=== PATIENT | male | born 1980 | race Caucasian/White ===

== ENCOUNTER 2018-02-26 06:08 | Emergency (ER) | payer OTHER ==
[2018-02-26 06:23] VITALS: TEMP 100.7; O2SAT 98
--- NOTE | 2018-02-26 06:44 | RAD ---
EXAM DESCRIPTION: Ankle,Left 3 Views CLINICAL HISTORY: stepped onto rock,pain and swelling,prior surgery COMPARISON: None. FINDINGS: 3 views of the right ankle. Prior plate and screw fixation of the distal fibula. Degenerative spurring of the tibiotalar joint. Medial soft tissue edema. No definite acute fracture identified. Base of the fifth metatarsal tarsal is intact. IMPRESSION: 1. No acute fracture or dislocation. Diffuse medial soft tissue edema. 2. Postoperative change of the distal fibula. 3. 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 Electronically signed by: Brendan Sevilla 02/26/2018 6:43 AM CDT
--- NOTE | 2018-02-26 06:56 | ED.PDOC ---
History of Present Illness - General Chief Complaint: Lower Extremity Injury Stated Complaint: L ankle pain Time Seen by Provider: 02/26/18 06:45 Source: patient, RN notes reviewed Exam Limitations: no limitations Additional Information: 37 YEAR OLD WHITE MALE HERE FOR EVALUATION OF LEFT ANKLE PAIN ON THE MEDIAL SIDE FOR 5 DAYS WORSE SINCE LAST 2 DAYS WITH CHILLS AND UNABLE TO WEIGHT BEAR HE HAD ORIF 12 YEARS AGO HE HAS NO HISTORY OF RECENT TRAUMA NO HISTORY OF GOUT OR POLYARTHRITIS HE WAS DIAGNOSED WITH PE 2 YEARS AGO AFTER A LENGTHY DISCUSSION I RECOMMENCED GOING TO A PLACE WHERE BLOOD CULTURES AND JOINT ASPIRATION COULD BE DONE AND A APPROPRIATE DIAGNOSIS CAN BE MADE NOW PATIENT INSISTS THAT WE GIVE ANTIBIOTICS AND RELEASE HIM AND HE WOULD SEEK MEDICAL HELP IF NOT BETTER - History of Present Illness Occurred: last week Pain - Lower Extremity: moderate: Left Ankle Method of Injury: unknown Improving Factors: immobilization Worsening Factors: movement Allergies/Adverse Reactions: Allergies Bee Venom Allergy (Verified 05/16/16 12:23) Home Medications: Ambulatory Orders Acetamin W/Cod #3 Tab [Tylenol w/CODEINE #3] 1 ea PO Q6HR PRN #40 tab 02/26/18 Clindamycin HCl [Cleocin] 300 mg PO Q6H #40 cap 02/26/18 Review of Systems - Review of Systems Constitutional: States: no symptoms reported EENTM: States: no symptoms reported Respiratory: States: no symptoms reported Cardiology: States: no symptoms reported Gastrointestinal/Abdominal: States: no symptoms reported Genitourinary: States: no symptoms reported Musculoskeletal: States: see HPI Skin: States: no symptoms reported Neurological: States: no symptoms reported Endocrine: States: no symptoms reported Past Medical History (General) - Patient Medical History Hx Seizures: No Hx Stroke: No Hx Dementia: No Hx Asthma: No Hx of COPD: No Hx Cardiac Disorders: No Hx Congestive Heart Failure: No Hx Pacemaker: No Hx Hypertension: Yes - off meds currently Hx Thyroid Disease: No Hx Diabetes: No Hx Gastroesophageal Reflux: Yes Hx Renal Disease: No Hx Cancer: No Hx of HIV: No Hx Hepatitis C: No Hx MRSA: No Surgical History: appendectomy - Vaccination History Hx Tetanus, Diphtheria Vaccination: Yes Hx Influenza Vaccination: Yes Hx Pneumococcal Vaccination: No Immunizations Up to Date: No - Social History Hx Tobacco Use: No Hx Chewing Tobacco Use: Yes 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 Family Medical History - Family History Father Family History: No Known Living Status: Still Living Physical Exam - Physical Exam General Appearance: Alert, Obvious distress, Well Developed, Well Groomed, Well Hydrated Eyes, Ears, Nose, Throat: PERRL/EOMI, normal ENT inspection, TMs normal, pharynx normal Neck: non-tender, full range of motion Cardiovascular/Respiratory: no M/R/G, normal peripheral pulses Gastrointestinal/Abdominal: non-tender, no organomegaly, no hernia Back: normal inspection, no CVA tenderness, no vertebral tenderness Leg: normal inspection, non-tender, no evidence of injury Knee: normal inspection, non-tender, no evidence of injury, normal ROM Ankle: bone tenderness, deformity, swelling, other - THE SKIN OVER THE LEFT MEDIAL MALLEOLUS IS RED TENDER AND SWOLLEN JUST BENEATH THE SCAR VERY SUSPICIOUS FOR SEPTIC ARTHRITIS Neuro/Tendon: normal sensation, normal motor functions, normal tendon functions , responds to pain Mental Status: alert Departure - Departure Clinical Impression: Cellulitis, Septic arthritis of ankle Disposition: Discharge to Home or Self Care Condition: Fair Departure Forms: ED Discharge - Pt. Copy, Patient Portal Self Enrollment Instructions: DI for Leg Pain Activity: no exercise Referrals: Flores Riggins NP [Primary Care Provider] - 1-2 Weeks Prescriptions: Acetamin W/Cod #3 Tab [Tylenol w/CODEINE #3] 1 ea PO Q6HR PRN #40 tab PRN Reason: Mild To Moderate Pain Clindamycin HCl [Cleocin] 300 mg PO Q6H #40 cap Home Medications: Ambulatory Orders Acetamin W/Cod #3 Tab [Tylenol w/CODEINE #3] 1 ea PO Q6HR PRN #40 tab 02/26/18 Clindamycin HCl [Cleocin] 300 mg PO Q6H #40 cap 02/26/18
[2018-02-26] MEDS ORDERED: KETOROLAC TROMETHAMINE INJ 30 MG/ML VIAL IV ONE (06:57)
[2018-02-26] MEDS ORDERED: CLINDAMYCIN IV 900MG 900 MG in PREMIX BAG 1 BAG IVPB ONE (08:22)
[2018-02-26] MEDS ORDERED: CLINDAMYCIN IV 900MG 50 ML IVPB ONE (08:29)
[2018-02-26 10:13] VITALS: BP 140/78
== END 2018-02-26 10:17 | disposition home or self-care (01) ==
LOC: ER 06:08
DX: M00.9 Pyogenic arthritis, unspecified (principal); L03.90 Cellulitis, unspecified; I10 Essential (primary) hypertension
CPT/HCPCS: 36415; 73610; 80053; 85025; 85651; J1885; J3490

== ENCOUNTER 2018-05-19 20:07 | Emergency (ER) | payer SELFPAY ==
[2018-05-19] MEDS ORDERED: IBUPROFEN 200 MG TAB PO ONE (20:33)
--- NOTE | 2018-05-19 20:38 | ED.PDOC ---
History of Present Illness - General Chief Complaint: Fever Stated Complaint: fever, body aches,dizzy,VILLARREAL,joint pain,pain urine Time Seen by Provider: 05/19/18 20:33 Source: patient, RN notes reviewed Exam Limitations: no limitations - History of Present Illness Initial Comments: HE STARTED WITH FEVER, CHILLS MYALGIAS AND ARTHRALGIAS AND A [id number], ONSET TODAY. HE HAS TAKEN NO MEDS AT HOME. Timing/Duration: this morning Fever Severity/Quality: greater than 102 F Fever Therapy END FINDER FORMING DEPARTMENT: none Associated Symptoms: headache, muscle aches, nausea/vomiting, weakness Review of Systems - Review of Systems Constitutional: States: fever, malaise EENTM: States: nose congestion Respiratory: States: no symptoms reported, short of breath Cardiology: States: no symptoms reported Gastrointestinal/Abdominal: States: nausea, vomiting Genitourinary: States: dysuria, frequency Musculoskeletal: States: joint pain, muscle pain Skin: States: no symptoms reported Neurological: States: headache Endocrine: States: no symptoms reported Hematologic/Lymphatic: States: no symptoms reported Past Medical History (General) - Patient Medical History Hx Seizures: No Hx Stroke: No Hx Dementia: No Hx Asthma: No Hx of COPD: No Hx Cardiac Disorders: No Hx Congestive Heart Failure: No Hx Pacemaker: No Hx Hypertension: Yes - off meds currently Hx Thyroid Disease: No Hx Diabetes: No Hx Gastroesophageal Reflux: Yes Hx Renal Disease: No Hx Cancer: No Hx of HIV: No Hx Hepatitis C: No Hx MRSA: No Surgical History: appendectomy - Vaccination History Hx Tetanus, Diphtheria Vaccination: Yes Hx Influenza Vaccination: Yes - 2013 Hx Pneumococcal Vaccination: No - Social History Hx Tobacco Use: Yes - dip Hx Chewing Tobacco Use: Yes 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 Hx Physical Abuse: No Hx Emotional Abuse: No Family Medical History - Family History Father Family History: No Known Living Status: Still Living Physical Exam - Physical Exam General Appearance: Alert, Anxious, Well Developed, Well Groomed, Well Hydrated Eye Exam: bilateral normal ENT Exam: normal ENT inspection, TMs normal, pharynx normal Neck: non-tender, supple Respiratory: chest non-tender, lungs clear, normal breath sounds, no respiratory distress, no accessory muscle use Cardiovascular/Chest: normal peripheral pulses, regular rate, rhythm, no edema, no gallop, no JVD, no murmur Gastrointestinal/Abdominal: normal bowel sounds, non tender, soft, no organomegaly, no pulsatile mass Extremity: normal range of motion, non-tender, normal inspection, no pedal edema , no calf tenderness Neurologic: alert, normal mood/affect, oriented x 3 Skin Exam: normal color Lymphatic: no adenopathy Progress - Results/Orders Results/Orders: THE CSF IS RESULTED. WBC = 1, THE REST IS NORMAL THE PATIENT FEELS MUCH BETTER. Procedures - Additional Procedures Additional Procedures: lumbar puncture - THE PATIENT WAS PLACED ON THE LATERAL DECUTUS POSITION, THE 4TH INTERVERTEBRAL SPACE PAS LOCALIZED. THE AREA WAS [ REPPED WITH BETADINE AND DRAPED IN THE USUAL STERILE FASHION. THE AREA WAS NUMBED WITH 1% LIDOCAINE. A NUMBER 20 SPINAL NEEDLE WAS USED AND A[[PROX 5 CC OF CLEAR CSF WAS OBTAINED AND SENT TO THE LAB. THE PATIENT TOLERATED THE PROCEDURE WELL. Departure - Departure Clinical Impression: Acute febrile illness, Fever in adult Time of Disposition: 23:07 Disposition: Discharge to Home or Self Care Condition: Good Departure Forms: ED Discharge - Pt. Copy Instructions: DI for Fever (Symptom) -- Adult Referrals: Flores Riggins NP [Primary Care Provider] - 1-2 Weeks Home Medications: Ambulatory Orders NK [NK] 05/19/18 Additional Instructions: TYLENOL AND IBUPROFEN NEEDED
--- NOTE | 2018-05-19 21:18 | RAD ---
Clinical History : fever and sob , MAIN Exam : Portable AP view of the chest 05/19/2018 8:34 PM CDT Comparisons : PA and lateral views of the chest May 23, 2016 Findings : The lungs are clear without focal consolidation or pleural effusion. The heart is normal in size. The mediastinal contours are normal in appearance. The thoracic spine is age appropriate. The shoulders are unremarkable. Limited evaluation of the upper abdomen demonstrates no gross abnormalities. Impression: No acute cardiopulmonary disease Electronically signed by: Becky Wall MD 05/19/2018 9:17 PM CDT
[2018-05-19] MEDS ORDERED: POVIDONE IODINE 10 % 15 ML UD TOP ONE (21:56)
[2018-05-19] MEDS ORDERED: HYDROcodone 10MG/APAP 325MG 1 EA TAB PO ONE (22:13)
[2018-05-19] MEDS ORDERED: cefTRIAXone SODIUM 1 GM VIAL IM ONE (23:06)
[2018-05-19] MEDS ORDERED: LIDOCAINE 1% 10 ML VIAL INJ ONE (23:09)
[2018-05-19 23:26] VITALS: BP 123/78; TEMP 100.4; O2SAT 99
== END 2018-05-19 23:27 | disposition home or self-care (01) ==
LOC: ER 20:07
DX: R50.9 Fever, unspecified (principal); R51 Headache; R42 Dizziness and giddiness; R30.0 Dysuria; R35.0 Frequency of micturition; I10 Essential (primary) hypertension; K21.9 Gastro-esophageal reflux disease without esophagitis; Z87.891 Personal history of nicotine dependence
CPT/HCPCS: 36415; 71045; 80053; 81001; 82945; 84157; 85025; 87040; 87070; 89051; J0696